=== PATIENT | female | born 1955 ===

== ENCOUNTER 2025-03-27 11:13 | Outpatient (NON) | payer MEDICARE, SELFPAY ==
[2025-03-27 13:06] LABS: Thyroid Stimulating Hormone 2.500 uIU/mL (0.465-4.680)
[2025-03-27 13:15] LABS: Blood Urea Nitrogen 40 mg/dL (7-17)
== END 2025-03-27 11:14 | disposition home or self-care (01) ==
DX: E04.2 Nontoxic multinodular goiter (principal); Z79.890 Hormone replacement therapy
CPT/HCPCS: 36415; 84436; 84443; 84520